=== PATIENT | female | born 1945 | race Native Hawaiian/Other Pacific Islander ===

== ENCOUNTER 2016-09-22 08:59 | Outpatient (CLI) | payer OTHER, MEDICARE | END 2016-09-22 19:46 | disposition home or self-care (01) | LOC: LABW 08:59 | DX: D50.8 Other iron deficiency anemias (principal) | CPT/HCPCS: 36415; 82272; 82607; 82728; 82747; 83540; 83550 ==

== ENCOUNTER 2016-10-20 08:23 | Outpatient (CLI) | payer OTHER, MEDICARE ==
[~2016-10-20] VITALS: Ht 154.9 cm; Wt 105.2 kg
== END 2016-10-20 19:43 | disposition home or self-care (01) ==
LOC: NM 08:23
DX: R94.31 Abnormal electrocardiogram [ECG] [EKG] (principal); R06.09 Other forms of dyspnea; I10 Essential (primary) hypertension; E78.4 Other hyperlipidemia; Z91.89 Other specified personal risk factors, not elsewhere classified; R94.2 Abnormal results of pulmonary function studies; R00.2 Palpitations; R42 Dizziness and giddiness
CPT/HCPCS: 93306; A9500; J2785

== ENCOUNTER 2016-11-23 09:43 | Outpatient (CLI) | payer OTHER, MEDICARE ==
[2016-11-23 10:24] LABS: PLATELET COUNT 351 K/uL (152-353)
[2016-11-23 10:53] LABS: POTASSIUM 4.1 mmol/L (3.6-5.2)
== END 2016-11-23 19:33 | disposition home or self-care (01) ==
LOC: LABW 09:43
PROVIDERS: Specialist
DX: R07.2 Precordial pain (principal); Z01.810 Encounter for preprocedural cardiovascular examination; R93.1 Abnormal findings on diagnostic imaging of heart and coronary circulation
CPT/HCPCS: 36415; 80053; 85027

== ENCOUNTER 2016-11-30 10:18 | Outpatient (CLI) | payer OTHER, MEDICARE ==
[2016-11-30 10:40] LABS: POTASSIUM 4.4 mmol/L (3.6-5.2)
== END 2016-11-30 19:52 | disposition home or self-care (01) ==
LOC: LABW 10:18
PROVIDERS: Nurse Practitioner Adult Health
DX: Z79.899 Other long term (current) drug therapy (principal); Z51.81 Encounter for therapeutic drug level monitoring; E11.9 Type 2 diabetes mellitus without complications
CPT/HCPCS: 36415; 80048

== ENCOUNTER 2016-12-24 12:58 | Outpatient (CLI) | payer OTHER, MEDICARE | END 2016-12-24 19:05 | disposition home or self-care (01) | LOC: MAMMO 12:58 | DX: Z12.31 Encounter for screening mammogram for malignant neoplasm of breast (principal) | CPT/HCPCS: G0202-TC ==

== ENCOUNTER 2017-01-14 08:16 | Outpatient (CLI) | payer OTHER, MEDICARE ==
[2017-01-14 08:28] LABS: PLATELET COUNT 282 K/uL (152-353)
[2017-01-14 08:40] LABS: POTASSIUM 4.1 mmol/L (3.6-5.2); SODIUM 136 mmol/L (136-145)
== END 2017-01-14 19:04 | disposition home or self-care (01) ==
LOC: LABW 08:16
PROVIDERS: Internal Medicine
DX: R10.11 Right upper quadrant pain (principal)
CPT/HCPCS: 36415; 80053; 85027

== ENCOUNTER 2017-01-15 09:51 | Outpatient (CLI) | payer OTHER, MEDICARE | END 2017-01-15 19:10 | disposition home or self-care (01) | LOC: US 09:51 | DX: R10.11 Right upper quadrant pain (principal) ==

== ENCOUNTER 2017-06-10 08:11 | Outpatient (CLI) | payer OTHER, MEDICARE ==
[2017-06-10 08:44] LABS: PLATELET COUNT 316 K/uL (152-353)
[2017-06-10 09:00] LABS: POTASSIUM 4.3 mmol/L (3.6-5.2)
== END 2017-06-10 21:51 | disposition home or self-care (01) ==
LOC: LABW 08:11
PROVIDERS: Internal Medicine
DX: E11.9 Type 2 diabetes mellitus without complications (principal); R82.99 Other abnormal findings in urine
CPT/HCPCS: 36415; 80053; 80061; 81000; 82043; 82570; 83036; 84443; 85027; 87077; 87086; 87088; 87186

== ENCOUNTER 2017-06-18 11:13 | Outpatient (CLI) | payer OTHER, MEDICARE ==
[~2017-06-18] VITALS: Ht 157.5 cm; Wt 109.3 kg
== END 2017-06-18 14:00 | disposition home or self-care (01) ==
LOC: INF 11:13
DX: N39.0 Urinary tract infection, site not specified (principal); B96.1 Klebsiella pneumoniae [K. pneumoniae] as the cause of diseases classified elsewhere
CPT/HCPCS: 96365; J0696

== ENCOUNTER 2017-06-19 11:08 | Outpatient (CLI) | payer OTHER, MEDICARE | END 2017-06-19 19:58 | disposition home or self-care (01) | LOC: INF 11:08 | DX: N39.0 Urinary tract infection, site not specified (principal) | CPT/HCPCS: 96365; J0696 ==

== ENCOUNTER 2017-06-20 11:05 | Outpatient (CLI) | payer OTHER, MEDICARE | END 2017-06-20 19:03 | disposition home or self-care (01) | LOC: INF 11:05 | DX: N39.0 Urinary tract infection, site not specified (principal) | CPT/HCPCS: 96365; J0696 ==

== ENCOUNTER 2017-06-21 11:09 | Outpatient (CLI) | payer OTHER, MEDICARE | END 2017-06-21 13:00 | disposition home or self-care (01) | LOC: INF 11:09 | DX: N39.0 Urinary tract infection, site not specified (principal) | CPT/HCPCS: 96365; J0696 ==

== ENCOUNTER 2017-06-22 11:04 | Outpatient (CLI) | payer OTHER, MEDICARE ==
[~2017-06-22] VITALS: Ht 157.5 cm; Wt 112.5 kg
[2017-06-22 11:20] VITALS: BP 186/53; TEMP 98.5
== END 2017-06-22 12:20 | disposition home or self-care (01) ==
LOC: INF 11:04
DX: N39.0 Urinary tract infection, site not specified (principal)
CPT/HCPCS: 96365; J0696

== ENCOUNTER 2017-06-23 10:49 | Outpatient (CLI) | payer OTHER, MEDICARE ==
[~2017-06-23] VITALS: Ht 157.5 cm; Wt 108.9 kg
[2017-06-23 11:00] VITALS: BP 190/70; TEMP 98.6
[2017-06-23 11:17] VITALS: BP 180/60
== END 2017-06-23 11:55 | disposition home or self-care (01) ==
LOC: INF 10:49
DX: N39.0 Urinary tract infection, site not specified (principal)
CPT/HCPCS: 96365; J0696

== ENCOUNTER 2017-06-24 10:54 | Outpatient (CLI) | payer OTHER, MEDICARE ==
[~2017-06-24] VITALS: Ht 157.5 cm; Wt 108.9 kg
[2017-06-24 11:10] VITALS: BP 180/68; TEMP 97.7
[2017-06-24 12:31] VITALS: BP 176/61
== END 2017-06-24 19:24 | disposition home or self-care (01) ==
LOC: INF 10:54
DX: N39.0 Urinary tract infection, site not specified (principal)
CPT/HCPCS: 81000; 96365; J0696

== ENCOUNTER 2017-11-24 09:50 | Outpatient (CLI) | payer OTHER, MEDICARE | END 2017-11-24 21:46 | disposition home or self-care (01) | LOC: RESP 09:50 | DX: R05 Cough (principal) | CPT/HCPCS: 94640; 94664 ==

== ENCOUNTER 2017-12-06 08:25 | Outpatient (CLI) | payer OTHER, MEDICARE ==
[2017-12-06 08:45] LABS: PLATELET COUNT 317 K/uL (152-353)
[2017-12-06 09:23] LABS: POTASSIUM 4.4 mmol/L (3.6-5.2)
== END 2017-12-06 19:18 | disposition home or self-care (01) ==
LOC: LABW 08:25
PROVIDERS: Internal Medicine
DX: E11.9 Type 2 diabetes mellitus without complications (principal)
CPT/HCPCS: 36415; 80053; 80061; 81000; 82043; 82570; 83036; 84443; 85027

== ENCOUNTER 2017-12-27 10:56 | Outpatient (CLI) | payer OTHER, MEDICARE | END 2017-12-27 21:49 | disposition home or self-care (01) | LOC: MAMMO 10:56 | DX: Z12.31 Encounter for screening mammogram for malignant neoplasm of breast (principal) ==

== ENCOUNTER 2018-06-15 08:28 | Outpatient (CLI) | payer OTHER, MEDICARE ==
[2018-06-15 09:02] LABS: PLATELET COUNT 330 K/uL (152-353)
[2018-06-15 09:16] LABS: POTASSIUM 4.4 mmol/L (3.6-5.2)
== END 2018-06-15 20:59 | disposition home or self-care (01) ==
LOC: LABW 08:28
PROVIDERS: Internal Medicine
DX: E11.9 Type 2 diabetes mellitus without complications (principal)
CPT/HCPCS: 36415; 80053; 80061; 81000; 82043; 82570; 83036; 84443; 85027

== ENCOUNTER 2018-08-10 21:13 | Inpatient (IN) | payer OTHER, MEDICARE ==
[~2018-08-10] VITALS: Ht 157.5 cm; Wt 109.3 kg
[2018-08-10] VITALS (7 sets, daily range): BP systolic 150–238; BP diastolic 43–99; TEMP 97.2
[2018-08-10 22:32] LABS: PLATELET COUNT 396 K/uL (152-353)
[2018-08-10 22:41] LABS: POTASSIUM 4.4 mmol/L (3.6-5.2); SODIUM 134 mmol/L (136-145)
[2018-08-11 02:18] VITALS: BP 180/72; TEMP 98.8; Ht 157.5 cm; Wt 109.3 kg
[2018-08-11 05:32] VITALS: BP 180/72; TEMP 98.8
[2018-08-11] MEDS ORDERED: K-TAB20 MEQ PO (11:51)
[2018-08-11] MEDS ORDERED: METF500T PO (11:51)
[2018-08-11] MEDS ORDERED: HYZAAR1 TA2 PO (11:52)
[2018-08-11] MEDS ORDERED: METO50TA27 PO (11:53)
[2018-08-11] MEDS ORDERED: NOVOLOG MX SC ×2 (11:54→11:58)
[2018-08-11 12:13] VITALS: BP 192/67; TEMP 98.5
[2018-08-11] MEDS ORDERED: GLIM2TAB PO (12:58)
[2018-08-11 16:03] VITALS: BP 197/56; TEMP 98.7
--- NOTE | 2018-08-11 17:20 | NUR ---
SHANTHI FROM LAB CALLED [facility] 4.6. WILL REPORT TO
--- NOTE | 2018-08-11 17:25 | NUR ---
[facility] CALLED TO DR ZAMUDIO IN ER. DR ZAMUDIO ASK FOR VITAL SIGNS. V/S STABLE DR ZAMUDIO STATES TO REPEAT LACTIC ACID IN AM
--- NOTE | 2018-08-11 17:49 | NUR ---
BS 424. 30 UNITS 70/30 GIVEN PER HOME MEDS AND 8 UNITS SLIDING SCALE GIVEN. BS REPORTED TO DR ZAMUDIO IN ER. DR ZAMUDIO SAYS CONTINUE WITH 70/30 INSULIN AND SLIDING SCALE.
[2018-08-11 20:00] VITALS: BP 154/59; TEMP 99
[2018-08-12 00:10] VITALS: BP 181/50; TEMP 98.4
[2018-08-12 04:00] VITALS: BP 168/57; TEMP 98.8
[2018-08-12 06:11] LABS: PLATELET COUNT 298 K/uL (152-353)
[2018-08-12 06:43] LABS: POTASSIUM 3.3 mmol/L (3.6-5.2)
[2018-08-12 08:03] VITALS: BP 185/55; TEMP 98.1
--- NOTE | 2018-08-12 12:00 | NUR ---
LEAKING AROUND IV SITE. 22G TO LH D/C'D. 20G TO LFA RESTARTED. NO PROBLEMS NOTED.
[2018-08-12 12:01] VITALS: BP 161/56; TEMP 98.6
[2018-08-12 16:05] VITALS: BP 168/67; TEMP 98.3
[2018-08-12 20:05] VITALS: BP 110/65; TEMP 98.4
[2018-08-13] VITALS: BP 158/76; TEMP 98.3
[2018-08-13 04:12] VITALS: BP 170/48; TEMP 98.6
[2018-08-13 06:03] LABS: PLATELET COUNT 315 K/uL (152-353)
[2018-08-13 06:24] LABS: POTASSIUM 3.5 mmol/L (3.6-5.2)
[2018-08-13 08:06] VITALS: BP 160/50; TEMP 98.2
--- NOTE | 2018-08-13 15:40 | NUR ---
IV D/C'D PER DOCTORS ORDERS. PT IS TO FOLLOW UP WITH PCP IN 1 WEEK. NEW RX GIVEN FOR LEVAQUIN. EXPLAINED THE IMPORTANCE OF MONITORING FOR AN ANAPHYLAXIS REACTION WHILE TAKING MEDICATION. PT AND PTS SPOUSE UNDERSTAND ALL DISCHARGE INSTRUCTIONS.
== END 2018-08-13 15:45 | disposition home or self-care (01) | DRG 178 ==
LOC: ED 21:13 → MED/SURG 23:25
PROVIDERS: Emergency Medicine; ADMIT Internal Medicine
DX: J15.6 Pneumonia due to other Gram-negative bacteria (principal); J44.0 Chronic obstructive pulmonary disease with (acute) lower respiratory infection; E11.9 Type 2 diabetes mellitus without complications; E87.6 Hypokalemia; I11.9 Hypertensive heart disease without heart failure
CPT/HCPCS: 36415; 36600; 80053; 82550; 82553; 82805; 82947; 83605; 84484; 85027; 85379; 87040; 87070; 87077; 87186; 87205; 93005; 94640; 94664; 94760; 96374; 99284; J0456; J0696; J1650; J1815; J2930

== ENCOUNTER 2018-09-14 10:49 | Outpatient (CLI) | payer OTHER, MEDICARE ==
[~2018-09-14 10:49] MED LIST: GLIM2TAB PO; HYZAAR1 TA2 PO; K-TAB20 MEQ PO; METF500T PO; METO50TA27 PO; NOVOLOG MX SC
== END 2018-09-14 19:04 | disposition home or self-care (01) ==
LOC: RAD 10:49
DX: J40 Bronchitis, not specified as acute or chronic (principal)

== ENCOUNTER 2018-10-13 14:36 | Outpatient (CLI) | payer OTHER, MEDICARE | END 2018-10-13 19:52 | disposition home or self-care (01) | LOC: LABW 14:36 | DX: R06.02 Shortness of breath (principal) | CPT/HCPCS: 36415; 83880 ==

== ENCOUNTER 2018-10-18 09:29 | Outpatient (CLI) | payer OTHER, MEDICARE | END 2018-10-18 19:07 | disposition home or self-care (01) | LOC: CT 09:29 | DX: R09.02 Hypoxemia (principal) | CPT/HCPCS: 36415; 82565; 84520; Q9963 ==

== ENCOUNTER 2018-11-22 09:52 | Outpatient (CLI) | payer OTHER, MEDICARE | END 2018-11-22 23:51 | disposition home or self-care (01) | LOC: RESP 09:52 | DX: J45.909 Unspecified asthma, uncomplicated (principal) ==

== ENCOUNTER → 2019-01-02 | Outpatient (CLI) | payer OTHER, MEDICARE ==
[2019-01-02 11:45] LABS: PLATELET COUNT 341 K/uL (152-353)
[2019-01-02 11:54] LABS: POTASSIUM 4.2 mmol/L (3.6-5.2)
== END ==
LOC: LABW 11:19
PROVIDERS: Specialist
DX: R06.02 Shortness of breath (principal); Z01.810 Encounter for preprocedural cardiovascular examination
CPT/HCPCS: 80053; 85027

== ENCOUNTER 2019-01-09 09:36 | Outpatient (CLI) | payer OTHER, MEDICARE ==
[2019-01-09 10:00] LABS: POTASSIUM 4.4 mmol/L (3.6-5.2)
== END 2019-01-09 19:34 | disposition home or self-care (01) ==
LOC: LABW 09:36
PROVIDERS: Nurse Practitioner Adult Health
DX: E11.9 Type 2 diabetes mellitus without complications (principal); R35.8 Other polyuria
CPT/HCPCS: 36415; 80048

== ENCOUNTER 2019-01-10 13:30 | Outpatient (CLI) | payer OTHER, MEDICARE | END 2019-01-10 20:28 | disposition home or self-care (01) | LOC: MAMMO 13:30 | DX: Z12.31 Encounter for screening mammogram for malignant neoplasm of breast (principal) ==

== ENCOUNTER 2019-02-09 10:32 | Outpatient (CLI) | payer OTHER, MEDICARE ==
[2019-02-09 10:59] LABS: POTASSIUM 4.6 mmol/L (3.6-5.2)
== END 2019-02-09 20:47 | disposition home or self-care (01) ==
LOC: LABW 10:32
PROVIDERS: Nurse Practitioner Adult Health
DX: Z79.899 Other long term (current) drug therapy (principal)
CPT/HCPCS: 36415; 80048

== ENCOUNTER 2019-03-01 15:30 | Outpatient (CLI) | payer OTHER, MEDICARE ==
[2019-03-01 15:56] LABS: POTASSIUM 4.3 mmol/L (3.6-5.2)
== END 2019-03-01 23:42 | disposition home or self-care (01) ==
LOC: LABW 15:30
PROVIDERS: Nurse Practitioner Adult Health
DX: R06.02 Shortness of breath (principal); E11.9 Type 2 diabetes mellitus without complications; R35.8 Other polyuria
CPT/HCPCS: 36415; 80048

== ENCOUNTER 2019-04-12 11:12 | Outpatient (CLI) | payer OTHER, MEDICARE ==
[2019-04-12 11:37] LABS: POTASSIUM 4.4 mmol/L (3.6-5.2)
== END 2019-04-12 23:46 | disposition home or self-care (01) ==
LOC: LABW 11:12
PROVIDERS: Nurse Practitioner Adult Health
DX: E11.9 Type 2 diabetes mellitus without complications (principal); Z79.899 Other long term (current) drug therapy
CPT/HCPCS: 36415; 80048; 80076

== ENCOUNTER 2019-05-15 11:49 | Outpatient (CLI) | payer OTHER, MEDICARE ==
[2019-05-15 12:21] LABS: POTASSIUM 4.7 mmol/L (3.6-5.2)
== END 2019-05-15 23:59 | disposition home or self-care (01) ==
LOC: LABW 11:49
PROVIDERS: Nurse Practitioner Adult Health
DX: R35.8 Other polyuria (principal); Z79.899 Other long term (current) drug therapy
CPT/HCPCS: 36415; 80048

== ENCOUNTER 2019-06-21 15:56 | Outpatient (CLI) | payer OTHER, MEDICARE ==
[2019-06-21 17:17] LABS: POTASSIUM 4.6 mmol/L (3.6-5.2)
== END 2019-06-21 23:41 | disposition home or self-care (01) ==
LOC: LABW 15:56
PROVIDERS: Nurse Practitioner Adult Health
DX: E87.5 Hyperkalemia (principal); Z79.899 Other long term (current) drug therapy
CPT/HCPCS: 36415; 80048

== ENCOUNTER 2019-08-10 11:04 | Outpatient (CLI) | payer OTHER, MEDICARE ==
[2019-08-10 11:56] LABS: POTASSIUM 4.2 mmol/L (3.6-5.2)
== END 2019-08-10 19:14 | disposition home or self-care (01) ==
LOC: LABW 11:04
PROVIDERS: Nurse Practitioner Adult Health
DX: E87.5 Hyperkalemia (principal); Z79.899 Other long term (current) drug therapy
CPT/HCPCS: 36415; 80048

== ENCOUNTER 2019-09-15 11:14 | Outpatient (CLI) | payer OTHER, MEDICARE ==
[2019-09-15 11:45] LABS: POTASSIUM 4.3 mmol/L (3.6-5.2)
== END 2019-09-15 22:40 | disposition home or self-care (01) ==
LOC: LABW 11:14
PROVIDERS: Nurse Practitioner Adult Health
DX: R94.39 Abnormal result of other cardiovascular function study (principal); R35.8 Other polyuria; I10 Essential (primary) hypertension; Z79.899 Other long term (current) drug therapy
CPT/HCPCS: 36415; 80048

== ENCOUNTER 2019-11-02 09:20 | Outpatient (CLI) | payer OTHER, MEDICARE ==
[2019-11-02 09:38] LABS: PLATELET COUNT 310 K/uL (152-353)
[2019-11-02 09:56] LABS: POTASSIUM 4.1 mmol/L (3.6-5.2)
== END 2019-11-02 19:46 | disposition home or self-care (01) ==
LOC: LABW 09:20
PROVIDERS: Nurse Practitioner Adult Health
DX: R35.8 Other polyuria (principal); Z79.899 Other long term (current) drug therapy; E11.9 Type 2 diabetes mellitus without complications
CPT/HCPCS: 36415; 80053; 80061; 81000; 82043; 82570; 83036; 84439; 84443; 85027; 87077; 87086; 87088; 87186

== ENCOUNTER 2021-01-15 09:43 | Outpatient (CLI) | payer OTHER, MEDICARE ==
[2021-01-15 10:06] LABS: POTASSIUM 3.9 mmol/L (3.6-5.2)
== END 2021-01-15 21:51 | disposition home or self-care (01) ==
LOC: LABW 09:43
PROVIDERS: ATTEND Specialist
DX: R94.30 Abnormal result of cardiovascular function study, unspecified (principal); R06.09 Other forms of dyspnea; R35.8 Other polyuria
CPT/HCPCS: 36415; 80048

== ENCOUNTER 2021-12-01 09:58 | Outpatient (CLI) | payer OTHER, MEDICARE | END 2021-12-01 19:06 | disposition home or self-care (01) | LOC: MAMMO 09:58 | PROVIDERS: ATTEND Internal Medicine | DX: Z12.31 Encounter for screening mammogram for malignant neoplasm of breast (principal) ==

== ENCOUNTER 2022-01-02 10:02 | Outpatient (CLI) | payer OTHER, MEDICARE | END 2022-01-02 20:59 | disposition home or self-care (01) | LOC: LAB 10:02 | PROVIDERS: ATTEND Internal Medicine | DX: N18.4 Chronic kidney disease, stage 4 (severe) (principal); R82.998 Other abnormal findings in urine | CPT/HCPCS: 80048; 81000; 87077; 87086; 87088; 87186 ==

== ENCOUNTER 2022-02-19 10:50 | Outpatient (CLI) | payer OTHER, MEDICARE ==
[2022-02-19 11:17] LABS: PLATELET COUNT 354 K/uL (152-353)
[2022-02-19 11:57] LABS: POTASSIUM 3.7 mmol/L (3.6-5.2)
== END 2022-02-19 18:57 | disposition home or self-care (01) ==
LOC: LABW 10:50 → US 11:30 → LABW 18:57
PROVIDERS: ATTEND Internal Medicine
DX: N18.4 Chronic kidney disease, stage 4 (severe) (principal); R53.83 Other fatigue; E53.8 Deficiency of other specified B group vitamins; E11.9 Type 2 diabetes mellitus without complications
CPT/HCPCS: 36415; 80053; 81000; 82306; 82330; 82570; 82607; 82728; 82746; 83036; 83540; 83550; 83735; 83970; 84100; 84156; 84439; 84443; 85027; 85652; 86038

== ENCOUNTER 2022-04-30 09:56 | Outpatient (CLI) | payer OTHER, MEDICARE | END 2022-04-30 19:27 | disposition home or self-care (01) | LOC: CT 09:56 | PROVIDERS: ATTEND Ophthalmology | DX: H50.15 Alternating exotropia (principal); R51.9 Headache, unspecified; H53.8 Other visual disturbances | CPT/HCPCS: Q9963 ==

== ENCOUNTER 2022-06-25 13:57 | Outpatient (CLI) | payer OTHER, MEDICARE ==
[2022-06-25 14:24] LABS: PLATELET COUNT 326 K/uL (152-353)
[2022-06-25 14:57] LABS: POTASSIUM 4.2 mmol/L (3.6-5.2)
== END 2022-06-25 19:16 | disposition home or self-care (01) ==
LOC: LAB 13:57
PROVIDERS: ATTEND Internal Medicine
DX: N18.4 Chronic kidney disease, stage 4 (severe) (principal); R53.83 Other fatigue; E53.8 Deficiency of other specified B group vitamins; E11.9 Type 2 diabetes mellitus without complications
CPT/HCPCS: 80053; 80061; 81000; 82306; 82330; 82570; 82607; 82728; 82746; 83036; 83540; 83550; 83735; 83970; 84100; 84156; 84439; 84443; 85027; 85652; 86038; 87077; 87086; 87088; 87186

== ENCOUNTER 2022-09-01 10:13 | Outpatient (CLI) | payer OTHER, MEDICARE | END 2022-09-01 19:19 | disposition home or self-care (01) | LOC: RAD 10:13 | PROVIDERS: ATTEND Nurse Practitioner Family | DX: M25.512 Pain in left shoulder (principal) ==

== ENCOUNTER 2022-09-25 09:34 | Outpatient (CLI) | payer OTHER, MEDICARE ==
[2022-09-25 10:21] LABS: PLATELET COUNT 306 K/uL (152-353)
== END 2022-09-25 19:52 | disposition home or self-care (01) ==
LOC: LABW 09:34
PROVIDERS: ATTEND Internal Medicine
DX: N18.4 Chronic kidney disease, stage 4 (severe) (principal); R53.83 Other fatigue; E53.8 Deficiency of other specified B group vitamins; E11.9 Type 2 diabetes mellitus without complications
CPT/HCPCS: 36415; 80053; 81000; 82043; 82306; 82330; 82550; 82570; 82607; 82728; 82746; 83036; 83540; 83550; 83735; 83970; 84100; 84156; 84439; 84443; 84550; 85027; 85652; 86038; 87077; 87086; 87088; 87186

== ENCOUNTER 2023-03-02 09:53 | Outpatient (CLI) | payer OTHER, MEDICARE ==
[2023-03-02 10:12] LABS: PLATELET COUNT 376 K/uL (152-353)
== END 2023-03-02 19:03 | disposition home or self-care (01) ==
LOC: LABW 09:53
PROVIDERS: ATTEND Physician Assistant Surgical
DX: M54.2 Cervicalgia (principal)
CPT/HCPCS: 36415; 85027; 85652; 86038; 86140; 86431

== ENCOUNTER 2023-10-19 08:37 | Outpatient (CLI) | payer OTHER, MEDICARE ==
[~2023-10-19 08:37] MED LIST changes: +MEDROL DOSEPAK4 MG; +VALA500T2 PO
[2023-10-21] MEDS ORDERED: OMEP40CA PO (17:55)
[2023-10-21] MEDS ORDERED: NEURONTIN800 MG PO (17:57)
[2023-10-21] MEDS ORDERED: METHO2.5 PO (17:58)
[2023-10-21] MEDS ORDERED: FARXIGA10 MG PO (17:58)
[2023-10-21] MEDS ORDERED: ALLO100T22 PO (17:59)
[2023-10-21] MEDS ORDERED: TOUJEO MAX300 UNIT/M SC (18:00)
[2023-10-21] MEDS ORDERED: SPIRONOLACT25 MG PO (18:01)
[2023-10-21] MEDS ORDERED: GLIM4TAB PO (18:02)
[2023-10-21] MEDS ORDERED: FURO40TA93 PO (18:02)
[2023-10-21] MEDS ORDERED: LOPRESSOR100 MG PO (18:02)
[2023-10-21] MEDS ORDERED: AMLODIPINE BESYLATE PO (18:03)
[2023-10-21] MEDS ORDERED: ASPIRIN/ENTERIC81 MG PO (18:04)
[2023-10-21] MEDS ORDERED: MULTIVITAMIN WO1 TA1 PO (18:04)
[2023-10-21] MEDS ORDERED: HUMALOG KW100 UNIT/M SC (18:07)
[2023-10-21] MEDS ORDERED: VITAMIN D1000 UNI1 PO (18:08)
== END 2023-10-19 19:26 | disposition home or self-care (01) ==
LOC: MRI 08:37
PROVIDERS: ATTEND Internal Medicine
DX: G44.89 Other headache syndrome (principal)
CPT/HCPCS: 36415; 82565; 84520